=== PATIENT | male | born 1995 | race Caucasian/White ===

== ENCOUNTER 2019-05-01 12:55 | Emergency (ER) | payer MEDICAID ==
--- NOTE | 2019-05-01 14:10 | EDM.PDOC ---
ED HPI GENERAL MEDICAL PROBLEM - General Chief Complaint: Abdominal Pain Stated Complaint: [facility] Time Seen by Provider: 05/01/19 14:10 Source of Information: Reports: Patient History Limitations: Reports: No Limitations - History of Present Illness INITIAL COMMENTS - FREE TEXT/NARRATIVE: pt has been at [facility] for 3 weeks . 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 He has had increased abdomanal pain and he knows he has a small hernia. He now feels that the bulge on the rt is definitely larger. He does have some pain when he voids. Onset: Gradual, Other (last 2-3 days. ) Duration: Hour(s): Location: Reports: Abdomen Associated Symptoms: Reports: Other ( increased abdomanal pain. ) - Related Data Allergies Allergy/AdvReac Type Severity Reaction Status Date / Time No Known Allergies Allergy Verified 05/01/19 13:32 Home Meds: Home Meds NK [No Known Home Meds] 05/01/19 [History] Past Medical History - Past Health History Medical/Surgical History: Denies Medical/Surgical History Social & Family History - Tobacco Use Smoking Status *Q: Current Every Day Smoker Years of Tobacco use: 2 Packs/Tins Daily: 0.5 ED ROS GENERAL - Review of Systems Review Of Systems: See Below Constitutional: Reports: No Symptoms HEENT: Reports: No Symptoms Respiratory: Reports: No Symptoms Cardiovascular: Reports: No Symptoms Endocrine: Reports: No Symptoms GI/Abdominal: Reports: Abdominal Pain, Other ( bulge in the rt lower abdoman. ) : Reports: Other ( increased pain with voiding. ) Musculoskeletal: Reports: No Symptoms Skin: Reports: No Symptoms Neurological: Reports: No Symptoms Psychiatric: Reports: No Symptoms ED EXAM, GI/ABD - Physical Exam Exam: See Below Text/Narrative:: pt arrived concerned about a lump in his rt lower abdoman. He knows he has a hernia but feels like it has gotten larger. Exam Limited By: No Limitations General Appearance: Alert, Mild Distress Ears: Normal TMs Nose: Normal Inspection Throat/Mouth: Normal Inspection Head: Atraumatic Neck: Normal Inspection Respiratory/Chest: No Respiratory Distress Cardiovascular: Regular Rate, Rhythm GI/Abdominal Exam: Soft, Other (mild tenderness ) (Male) Exam: Hernia, Other (pt has a good sized indirect inguinal hernia on the rt that is easily reduciable., ) Rectal (Males) Exam: Deferred Back Exam: Normal Inspection Extremities: Normal Inspection Neurological: Alert, Oriented, Normal Cognition Psychiatric: Normal Affect Course - Vital Signs Last Recorded V/S: Last Vital Signs Temp 35.9 C 05/01/19 13:38 Pulse 82 05/01/19 13:38 Resp 14 05/01/19 13:38 BP 126/61 05/01/19 13:38 Pulse Ox 96 05/01/19 13:38 - Orders/Labs/Meds Orders: Active Orders 24 hr Category Date Time Status CULTURE URINE [RM] Stat Lab 05/01/19 14:44 Received Labs: Laboratory Tests 05/01/19 05/01/19 05/01/19 Range/Units 14:04 14:16 14:16 WBC 6.7 (4.5-11.0) K/uL RBC 4.74 (4.30-5.90) M/uL Hgb 13.9 (12.0-15.0) g/dL Hct 43.1 (40.0-54.0) % MCV 91 (80-98) fL MCH 29 (27-31) pg MCHC 32 (32-36) % Plt Count 204 (150-400) K/uL Neut % (Auto) 64 (36-66) % Lymph % (Auto) 23 L (24-44) % Jerome % (Auto) 11 H (2-6) % Eos % (Auto) 2 (2-4) % Baso % (Auto) 0 (0-1) % Sodium 144 (140-148) mmol/L Potassium 4.0 (3.6-5.2) mmol/L Chloride 106 (100-108) mmol/L Carbon Dioxide 30 (21-32) mmol/L Anion Gap 8.0 (5.0-14.0) mmol/L BUN 15 (7-18) mg/dL Creatinine 0.8 (0.8-1.3) mg/dL Est Cr Clr Drug Dosing 144.90 mL/min Estimated GFR (MDRD) > 60 (>60) Glucose 108 H (74-106) mg/dL Calcium 8.6 (8.5-10.1) mg/dL Total Bilirubin 0.3 (0.2-1.0) mg/dL AST 13 L (15-37) U/L ALT 32 (12-78) U/L Alkaline Phosphatase 51 (46-116) U/L Total Protein 6.2 L (6.4-8.2) g/dL Albumin 3.6 (3.4-5.0) g/dL Globulin 2.6 (2.3-3.5) g/dL Albumin/Globulin Ratio 1.4 (1.2-2.2) Urine Color Yellow Urine Appearance Clear Urine pH 7.0 (4.5-8.0) Ur Specific [place] 1.015 (1.008-1.030) Urine Protein Negative (NEGATIVE) mg/dL Urine Glucose (UA) Normal (NEGATIVE) mg/dL Urine Ketones Negative (NEGATIVE) mg/dL Urine Occult Blood Negative (NEGATIVE) Urine Nitrite Negative (NEGAITVE) Urine Bilirubin Negative (NEGATIVE) Urine Urobilinogen Normal (NORMAL) mg/dL Ur Leukocyte Esterase Small (NEGATIVE) Urine RBC 0-5 (0-5) Urine WBC 20-30 H (0-5) Ur Epithelial Cells Not seen Amorphous Sediment Few Urine Bacteria Few Urine Mucus Not seen - Re-Assessments/Exams Free Text/Narrative Re-Assessment/Exam: 05/01/19 15:36 pt did have a greater than 20 wbcs in his urine with a few bacteria. He is having pain when he voids up in the abdoman. Departure - Departure Time of Disposition: 15:26 Disposition: Home, Self-Care 01 Condition: Fair Clinical Impression: Indirect inguinal hernia, UTI (urinary tract infection) - Discharge Information Instructions: Inguinal Hernia, Adult, [id number], Urinary Tract Infection, Adult, [id number] Referrals: PCP,None [Primary Care Provider] - Forms: ED Department Discharge Care Plan Goals: push fluids, cipro 500mg bid for 1 week. pt will go to [facility] to have his hernia repaired after he finishes tratment. If it becomes unreduciable he should return. - My Orders Last 24 Hours: My Active Orders 05/01/19 14:44 CULTURE URINE [RM] Stat - Assessment/Plan Last 24 Hours: My Active Orders 05/01/19 14:44 CULTURE URINE [RM] Stat
[2019-05-01] MEDS ORDERED: Ciprofloxacin 500 MG Tab PO ONE (15:34)
== END 2019-05-01 16:21 | disposition home or self-care (01) ==
LOC: JP.ED 12:55
DX: N39.0 Urinary tract infection, site not specified (principal); K40.90 Unilateral inguinal hernia, without obstruction or gangrene, not specified as recurrent; F17.210 Nicotine dependence, cigarettes, uncomplicated
CPT/HCPCS: 36415; 80053; 81001; 85025; 87086; 99284; A9270; 99283

== ENCOUNTER 2019-05-26 07:02 | Day surgery (SDC) | payer MEDICAID ==
[~2019-05-26 07:02] MED LIST: Bupivacaine 0.5% 50 ML MDV ONE; Lidocaine 1% with EPINEPHrine 1:100,000 50 ML MDV ONE
[2019-05-26] MEDS ORDERED: ceFAZolin 2 GM in Premix Bag 1 BAG IV ONE (08:00)
[2019-05-26] MEDS ORDERED: Dextrose 5%-Lactated Ringers 1,000 ML IV SCH (08:00)
[2019-05-26] MEDS ORDERED: fentaNYL 100 MCG/2 ML SDV ONE (08:17)
[2019-05-26] MEDS ORDERED: Propofol 200 MG/20 ML SDV ONE ×3 (08:17→08:57)
[2019-05-26] MEDS ORDERED: Midazolam 1 MG/ML 2 ML SDV ONE (08:17)
[2019-05-26] MEDS ORDERED: Acetaminophen/HYDROcodone 325-5 MG Tab PO ONE (09:53)
--- NOTE | 2019-05-27 09:25 | OR ---
DATE OF PROCEDURE: 05/26/2019 PREOPERATIVE DIAGNOSIS: Reducible right inguinal hernia. POSTOPERATIVE DIAGNOSIS: Reducible indirect right inguinal hernia. PROCEDURE: Repair of reducible indirect right inguinal hernia with an extra-large PerFix mesh plug and patch. SURGEON: Lev Morgan MD ANESTHESIA: IV anesthesia with monitored anesthesia care. INDICATION: This 24-year-old white male has a reducible right inguinal hernia that has been present for a few weeks, it is getting larger, it was painful transiently, but this has resolved. He denies predisposing factors for hernia formation. I counseled him for repair of his right inguinal hernia with mesh, including risks and alternatives, and he gave his informed consent to proceed. DESCRIPTION OF PROCEDURE: After adequate IV anesthesia was obtained, the patient's lower abdomen, groin, and genitalia were prepped and draped in usual sterile fashion. Time-out was held. Lidocaine 1% with epinephrine in a 50:50 mix with 0.5% Marcaine was infiltrated about the right groin. The right groin incision was made 2 cm superior and medial to the inguinal ligament. This was carried deep using Bovie cautery to the external oblique. The external oblique was opened parallel to its course from the internal to the external ring. The spermatic cord was mobilized and a Black drain placed about it. The floor appeared to be intact. The cremasteric fibers were longitudinally to reveal an indirect sac. This was dissected free and reduced back into the abdominal cavity. This was a fairly large defect. An extra-large PerFix mesh plug manufactured by [employer] was obtained. This was placed down underneath the fascia and anchored to the underside of the fascia with horizontal mattress stitches of 2-0 Vicryl. The onlay patch was obtained, cut to appropriate length, and placed over the inguinal floor. It was anchored to itself around the spermatic cord with a horizontal mattress stitch of 2-0 Vicryl. The ilioinguinal nerve was divided. The external oblique was closed over the spermatic cord and mesh with a running stitch of 2-0 Vicryl. Interrupted 3-0 Vicryl stitches were placed to approximate the Johnny fascia. 4-0 Vicryl using a subcuticular stitch was placed to approximate the skin. Dermabond was applied. The patient tolerated the procedure well and was brought to the recovery room in good condition. Lev Morgan MD /[id number]
== END 2019-05-26 10:22 | disposition home or self-care (01) ==
LOC: JP.SDS 07:02
PROVIDERS: ATTEND Surgery
DX: K40.90 Unilateral inguinal hernia, without obstruction or gangrene, not specified as recurrent (principal); K21.9 Gastro-esophageal reflux disease without esophagitis; F17.210 Nicotine dependence, cigarettes, uncomplicated; Z79.899 Other long term (current) drug therapy
CPT/HCPCS: 49505; A9270; C1781; J0690; J2250; J2704; J3010; J3490; J7042